=== PATIENT | male | born 1955 | race Hispanic/Latino ===

== ENCOUNTER 2019-01-21 17:41 | Inpatient (IN) | payer SELFPAY ==
[~2019-01-21] VITALS: Ht 180.3 cm; Wt 80.2 kg
[2019-01-21] MEDS ORDERED: BUPIVACAINE/PF 0.5% 30ML VIAL ONE (17:43)
[2019-01-21] MEDS ORDERED: LIDOCAINE HCL 2% 20ML ONE (17:43)
[2019-01-21] MEDS ORDERED: TETANUS/DIPHTHERIA TOXOID [ADULT] 0.5 ML VIAL IM ONE (18:07)
[2019-01-21] MEDS ORDERED: CEFAZOLIN SODIUM 1 GM VIAL ONE (18:22)
[2019-01-21] MEDS ORDERED: SODIUM CHLORIDE 0.9% 100 ML IV ONE (18:22)
[2019-01-21 18:27] LABS: HEMATOCRIT 43.4 % (42-54); LYMPHOCYTES % (AUTO) 28.4 % (21.0-51.0); MEAN CORPUSCULAR HEMOGLOBIN 32.1 pg (27.0-33.0); MEAN CORPUSCULAR HGB CONC 34.6 g/dL (32.0-36.0); MEAN CORPUSCULAR VOLUME 92.8 fL (79-99); MONOCYTES % (AUTO) 9.4 % (3.0-13.0); NEUTROPHILS % (AUTO) 59.2 % (40.0-77.0); PLATELET COUNT (AUTO) 296 K/uL (130-400); RED BLOOD CELL COUNT(AUTO) 4.68 MIL/uL (4.50-6.20); RED CELL DISTRIBUTION WIDTH 14.1 % (11.0-15.5); WHITE BLOOD COUNT (AUTO) 8.2 K/uL (4.8-10.8)
[2019-01-21 18:30] LABS: CREATININE 0.8 mg/dL (0.5-1.5); POTASSIUM 3.6 mmol/L (3.5-5.1)
[2019-01-21 19:48] LABS: INR 0.91 (0.85-1.15); PARTIAL THROMBOPLASTIN TIME 25.2 SEC (26.3-35.5); PROTHROMBIN TIME 9.6 SEC (9.6-11.6)
[2019-01-21] MEDS ORDERED: SODIUM CHLORIDE 0.9% 1000ML 1,000 ML IV SCH (20:16)
[2019-01-21] MEDS ORDERED: ACETAMINOPHEN 325 MG TAB PO PRN (20:30)
[2019-01-21] MEDS ORDERED: MORPHINE SULFATE 4 MG/1ML SYG IV PRN (20:30)
[2019-01-21] MEDS ORDERED: HYDRALAZINE HCL 20 MG/ML VIAL IV PRN (20:30)
[2019-01-21] MEDS ORDERED: ONDANSETRON HCL 4 MG/2 ML VIAL IV PRN (20:30)
[2019-01-21] MEDS ORDERED: LORAZEPAM 2 MG/ML 1 ML VIAL IVP PRN ×2 (20:45)
[2019-01-21] MEDS ORDERED: PHARMACY COMMUNICATION MISC PRN (20:45)
[2019-01-21] MEDS ORDERED: CHLORDIAZEPOXIDE HCL 25 MG CAP PO PRN ×2 (20:45)
[2019-01-21] MEDS ORDERED: MORPHINE SULFATE 2 MG/ML 1ML SYG IVP PRN (21:00)
[2019-01-21] MEDS: THIAMINE HCL 100 MG, FOLIC ACID 1 MG, M.V.I. IV [ADULT] 10 ML in SODIUM CHLORIDE 0.9% 1... IV SCH (21:00)
[2019-01-21] MEDS: FAMOTIDINE/PF 20 MG/2 ML VIAL IV SCH (21:00)
[2019-01-21 21:40] LABS: AMPHET/METH SCREEN,URINE NEGATIVE (NEGATIVE); BARBITURATE SCREEN, URINE NEGATIVE (NEGATIVE); BENZODIAZEPINES SCREEN,URINE NEGATIVE (NEGATIVE); CANNABINOID SCREEN,URINE NEGATIVE (NEGATIVE); COCAINE SCREEN,URINE NEGATIVE (NEGATIVE); OPIATE SCREEN,URINE NEGATIVE (NEGATIVE); PHENCYCLIDINE SCREEN,URINE NEGATIVE (NEGATIVE)
[2019-01-21] MEDS ORDERED: FAMOTIDINE/PF 20 MG/2 ML VIAL IV ONE (22:39)
[2019-01-21 22:50] VITALS: BP 169/119
[2019-01-22 03:00] VITALS: BP 179/98
[2019-01-22 07:30] VITALS: BP 177/98
[2019-01-22] MEDS: AMLODIPINE BESYLATE 5 MG TAB PO SCH (08:36)
[2019-01-22] MEDS: FAMOTIDINE/PF 20 MG/2 ML VIAL IV SCH ×2 (08:37→19:46)
[2019-01-22] MEDS: THIAMINE HCL 100 MG, FOLIC ACID 1 MG, M.V.I. IV [ADULT] 10 ML in SODIUM CHLORIDE 0.9% 1... IV SCH (09:24)
[2019-01-22 11:00] VITALS: BP 174/99
--- NOTE | 2019-01-22 14:52 | NUR ---
DCP CM met with pt discussed dc plans. Pt is independent prior to admission, lives at home with spouse. Denies any equipments/services. Pt feels safe to go back home, still works and drives, spouse able to assist with transportation and needs. Pt is a self pay, C assisting, states usually goes to [facility] for MD follow up, given community resources. DC plan to home once stable. CM to cont to follow up. Addendum: 01/22/19 at 1454 by ALEYDA RM LVN CM Amended: Links added.
[2019-01-22 16:00] VITALS: BP 169/99
[2019-01-22 19:00] VITALS: BP_SYST 145; BP_SYST 176; BP_DIAS 100; BP_DIAS 107
[2019-01-22] MEDS ORDERED: AMLO10TA4 PO (19:48)
[2019-01-22] MEDS ORDERED: HYDROCHLOROTHIAZIDE 25 MG TABLET PO ONE (21:45)
[2019-01-22] MEDS ORDERED: LISINOPRIL 10 MG TABLET PO ONE (21:45)
[2019-01-23] VITALS (21 sets, daily range): BP systolic 106–161; BP diastolic 63–101
[2019-01-23] MEDS ORDERED: THIAMINE HCL 100 MG, FOLIC ACID 1 MG, M.V.I. IV [ADULT] 10 ML in SODIUM CHLORIDE 0.9% 1... IV SCH (09:00)
[2019-01-23] MEDS ORDERED: HYDROCHLOROTHIAZIDE 25 MG TABLET PO SCH (09:00)
[2019-01-23] MEDS ORDERED: LISINOPRIL 10 MG TABLET PO SCH (09:00)
[2019-01-23] MEDS: FAMOTIDINE/PF 20 MG/2 ML VIAL IV SCH (09:17)
[2019-01-23] MEDS: AMLODIPINE BESYLATE 5 MG TAB PO SCH (09:17)
[2019-01-23] MEDS ORDERED: LACTATED RINGERS 1000ML 1,000 ML IV ONE (11:24)
[2019-01-23] MEDS ORDERED: ONDANSETRON HCL 4 MG/2 ML VIAL ONE (11:30)
[2019-01-23] MEDS ORDERED: LIDOCAINE PF 2% 5ML ABBOJECT ONE (11:30)
[2019-01-23] MEDS ORDERED: GLYCOPYRROLATE 1 MG/5 ML SYRINGE ONE (11:30)
[2019-01-23] MEDS ORDERED: PROPOFOL 10 MG/ML 20ML VIAL IV ONE (11:30)
[2019-01-23] MEDS ORDERED: DEXAMETHASONE SOD PHOSPHATE 10MG/ML 1ML VIAL ONE ×2 (11:30→11:35)
[2019-01-23] MEDS ORDERED: SUCCINYLCHOLINE 200MG/10ML SYR ONE (11:30)
[2019-01-23] MEDS ORDERED: MIDAZOLAM HCL 1 MG/ML 2ML VIAL ONE (11:31)
[2019-01-23] MEDS ORDERED: ROCURONIUM 10MG/1ML SYR 10 MG/ML ML ONE (11:31)
[2019-01-23] MEDS ORDERED: NEOSTIGMINE 5MG/5ML SYR IV ONE (11:31)
[2019-01-23] MEDS ORDERED: FENTANYL CITRATE PF 50 MCG/1 ML 2ML VIAL ONE (11:33)
[2019-01-23] MEDS ORDERED: CEFAZOLIN SODIUM 1 GM VIAL ONE (12:16)
[2019-01-23] MEDS ORDERED: BUPIVACAINE/PF 0.5% 30ML VIAL ONE (12:35)
[2019-01-23] MEDS ORDERED: MEPERIDINE-PF 25 MG/ML SYG ONE (12:59)
--- NOTE | 2019-01-23 18:08 | NUR ---
PT D/C W EDUCATION GIVEN USING TEACH BACK SUCCESSFULLY IV REMOVED CATHETER INTACT ARM SLING GIVEN ,RX GIVEN PT DENIES SOB OR CHEST PAIN
== END 2019-01-23 18:15 | disposition home or self-care (01) | DRG 906 ==
LOC: EDH 17:41 → EDHIP 17:42 → 4BH 22:35
PROVIDERS: ADMIT Hospitalist; ATTEND Hospitalist
PROC: 3E0234Z Introduction of Serum, Toxoid and Vaccine into Muscle, Percutaneous Approach (ICD-10-PCS; 2019-01-21)
PROC: 0PHT34Z Insertion of Internal Fixation Device into Right Finger Phalanx, Percutaneous Approach (ICD-10-PCS; 2019-01-23)
PROC: 0JBJ0ZZ Excision of Right Hand Subcutaneous Tissue and Fascia, Open Approach (ICD-10-PCS; 2019-01-23)
PROC: 0LQ73ZZ Repair Right Hand Tendon, Percutaneous Approach (ICD-10-PCS; 2019-01-23)
PROC: 0PHT34Z Insertion of Internal Fixation Device into Right Finger Phalanx, Percutaneous Approach (ICD-10-PCS; 2019-01-23)
PROC: 0LQ73ZZ Repair Right Hand Tendon, Percutaneous Approach (ICD-10-PCS; 2019-01-23)
PROC: 0JBJ0ZZ Excision of Right Hand Subcutaneous Tissue and Fascia, Open Approach (ICD-10-PCS; principal; 2019-01-23 12:10)
DX: S68.122A Partial traumatic metacarpophalangeal amputation of right middle finger, initial encounter (principal); S68.124A Partial traumatic metacarpophalangeal amputation of right ring finger, initial encounter; F17.210 Nicotine dependence, cigarettes, uncomplicated; I10 Essential (primary) hypertension; W45.8XXA Other foreign body or object entering through skin, initial encounter; F10.10 Alcohol abuse, uncomplicated; Y90.1 Blood alcohol level of 20-39 mg/100 ml; Y93.89 Activity, other specified; Y92.89 Other specified places as the place of occurrence of the external cause; Y99.8 Other external cause status; Z79.899 Other long term (current) drug therapy; Z23 Encounter for immunization
CPT/HCPCS: 36415; 71045; 73130; 80048; 80305; 85025; 85610; 85730; 90714; 93005; A4565; C1713; G0378; G0480; J0330; J0360; J0690; J1100; J2001; J2175; J2250; J2270; J2405; J2704; J2710; J3010; J3411; J3490; J7030; J7120